=== PATIENT | female | born 1995 | race Two or more races ===

== ENCOUNTER 2018-05-18 05:02 | Emergency (ER) | payer SELFPAY ==
[2018-05-18 05:32] LABS: URINE HCG POC HCG NEGATIVE (Negative)
[2018-05-18 06:04] LABS: BILIRUBIN,URINE NEGATIVE (NEG); CLARITY,URINE CLEAR; COLOR,URINE ORANGE; GLUCOSE,URINE NEGATIVE (NEG); NITRITE,URINE POSITIVE (NEG); PROTEIN,URINE NEGATIVE (NEG-TRACE); UROBILINOGEN,URINE 0.2 mg/dL (0.2 mg/dL)
[2018-05-18 06:13] LABS: BACTERIA,URINE FEW /HPF (0-FEW); RBC,URINE RARE /HPF (0-2); SQUAMOUS EPITHELIAL CELL,UR FEW /LPF
== END 2018-05-18 06:20 | disposition home or self-care (01) ==
LOC: ER 05:02
DX: N39.0 Urinary tract infection, site not specified (principal); F90.9 Attention-deficit hyperactivity disorder, unspecified type
CPT/HCPCS: 81001; 81025; 87086; 99284